=== PATIENT | female | born 1995 | race Caucasian/White ===

== ENCOUNTER 2019-02-19 11:26 | Inpatient (IN) | payer OTHER ==
[~2019-02-19] VITALS: Ht 149.9 cm; Wt 64.0 kg
[2019-03-17] MEDS ORDERED: RHOGAM ULTR1500 UNIT IM (11:36)
== END 2019-03-17 12:27 | disposition home or self-care (01) | DRG 807 ==
LOC: OB/GYN 03-15 08:07 → LDR 03-15 08:07 → OB/GYN 03-15 13:44
PROVIDERS: ADMIT Obstetrics & Gynecology
PROC: 10E0XZZ Delivery of Products of Conception, External Approach (ICD-10-PCS; principal; 2019-03-15)
PROC: 0UQGXZZ Repair Vagina, External Approach (ICD-10-PCS; 2019-03-15)
PROC: 4A1HXCZ Monitoring of Products of Conception, Cardiac Rate, External Approach (ICD-10-PCS; 2019-03-15)
PROC: 4A033R1 Measurement of Arterial Saturation, Peripheral, Percutaneous Approach (ICD-10-PCS; 2019-03-15)
DX: O71.4 Obstetric high vaginal laceration alone (principal); Z37.0 Single live birth; Z3A.38 38 weeks gestation of pregnancy